=== PATIENT | male | born 1975 | race Caucasian/White ===

== ENCOUNTER 2022-06-18 02:00 | Emergency (ER) | payer OTHER ==
[~2022-06-18] VITALS: Ht 193 cm; Wt 95.3 kg
[2022-06-18 02:05] VITALS: BP 115/77
--- NOTE | 2022-06-18 02:05 | NUR ---
Patient being evaluated by physician at bedside.
--- NOTE | 2022-06-18 02:05 | NUR ---
0202- BIBA TAKEN TO BED #5
--- NOTE | 2022-06-18 02:18 | NUR ---
47YR OLD MALE BIB EMS C/O ROSAL[place] FOOT PAIN . [facility] RECENTLY HOMELESS. BURNING /SHARP PAIN TO ROSALIA FEET . 8/10 PAIN LEVEL. PT IS A&OX4. 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 HOB ELEVATED. BED AT LOWEST POSITION. PCN BRAIN CA CVA X2 DM
[2022-06-18] MEDS ORDERED: KETOROLAC 60 MG/2 ML VIAL IM ONE (02:35)
--- NOTE | 2022-06-18 02:55 | NUR ---
BLISTERS FORMING ON SOLE OF FEET . PT PAIN LEVEL 8/10
--- NOTE | 2022-06-18 04:05 | NUR ---
PT SLEEPING. 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 RESP EVEN AND UNLABORED. HOB ELEVATED. FOOD PROVIDED TO PT
[2022-06-18] MEDS ORDERED: GABA300C PO (05:27)
[2022-06-18 05:45] VITALS: BP 112/71
--- NOTE | 2022-06-18 05:45 | NUR ---
Patient discharged with v/s stable. Written and verbal after care instructions given and explained. Patient alert, oriented and verbalized understanding of instructions. Ambulatory with steady gait. All questions addressed prior to discharge. ID band removed. Patient advised to follow up with PMD. Rx of NEURONTIN given.
--- NOTE | 2022-06-18 05:48 | NUR ---
The patient's care was reviewed and supervised by Keeley Ocampo RN.
== END 2022-06-18 05:45 | disposition home or self-care (01) ==
LOC: MED 02:00
DX: G62.9 Polyneuropathy, unspecified (principal); E11.9 Type 2 diabetes mellitus without complications; Z86.73 Personal history of transient ischemic attack (TIA), and cerebral infarction without residual deficits; Z85.841 Personal history of malignant neoplasm of brain; Z88.0 Allergy status to penicillin
CPT/HCPCS: 96372; 99283; J1885